=== PATIENT | female | born 1990 | race Caucasian/White ===

== ENCOUNTER 2016-09-08 22:11 | Emergency (ER) | payer BC ==
[~2016-09-08] VITALS: Ht 170.2 cm; Wt 85.0 kg
[~2016-09-08 22:11] MED LIST: AUGMENTIN875 MG PO; COLACE100 MG PO; DOXYCYCLINE HY100 MG PO; ENDOCET 5-3251 EACH PO; IBUPROFEN800 MG PO; NOHOMEMEDS; PRENA1 CHEW TA1.4 MG PO; PRILOSEC20 MG PO; VALTREX50 MG/ML PO; ZANTAC150 MG PO
[2016-09-08] MEDS ORDERED: PERCOCET 5/31 TABLET PO (23:27)
[2016-09-09 00:12] VITALS: BP 111/62
== END 2016-09-09 00:12 | disposition home or self-care (01) ==
LOC: EME 22:11
PROC: 2W3RX1Z Immobilization of Left Lower Leg using Splint (ICD-10-PCS; principal; 2016-09-08)
DX: S92.352A Displaced fracture of fifth metatarsal bone, left foot, initial encounter for closed fracture (principal); W18.30XA Fall on same level, unspecified, initial encounter; Y93.01 Activity, walking, marching and hiking
CPT/HCPCS: 73630; 99281; 99284

== ENCOUNTER 2017-02-28 13:56 | Emergency (ER) | payer BC ==
[~2017-02-28] VITALS: Ht 170.2 cm; Wt 80.8 kg
[~2017-02-28 13:56] MED LIST changes: +PERCOCET 5/31 TABLET PO
[2017-02-28 15:04] VITALS: BP 129/80
== END 2017-02-28 15:08 | disposition home or self-care (01) ==
LOC: EME 13:56
PROC: 0HQGXZZ Repair Left Hand Skin, External Approach (ICD-10-PCS; principal; 2017-02-28)
DX: S61.211A Laceration without foreign body of left index finger without damage to nail, initial encounter (principal); W26.0XXA Contact with knife, initial encounter; Z33.1 Pregnant state, incidental; Z3A.01 Less than 8 weeks gestation of pregnancy
CPT/HCPCS: 99281; 99284

== ENCOUNTER 2017-10-08 07:32 | Inpatient (IN) | payer BC ==
[2017-10-08] VITALS (27 sets, daily range): BP systolic 104–133; BP diastolic 56–80
[~2017-10-08] VITALS: Ht 170.2 cm; Wt 90.0 kg
[2017-10-08] MEDS ORDERED: VALTREX50 MG/ML PO (08:17)
[2017-10-08 09:19] LABS: BASOPHIL (%) 0.3 % (0-1); EOSINOPHIL (%) 0.4 % (0-5); HEMATOCRIT 35.2 % (36.0-46.0); HEMOGLOBIN 11.9 G/DL (11.9-15.5); IMMATURE GRANULOCYTE (%) 0.4 % (0.0-0.7); LYMPHOCYTE (%) 10.8 % (15-42); LYMPHOCYTE COUNT 1.1 K/uL (1.0-2.8); MCH 33.1 PG (29.0-34.0); MCHC 33.8 G/DL (30.0-36.0); MCV 98.1 FL (83-99); MONOCYTE (%) 4.1 % (3-12); MONOCYTE COUNT 0.4 K/uL (0-0.8); NEUTROPHIL COUNT 8.2 K/uL (1.8-6.4); PLATELET COUNT 147 K/uL (156-360); RBC DIS.WIDTH-CV 13.2 % (11.8-14.6); RBC DIS.WIDTH-SD 47.1 % (39-53); RED BLOOD COUNT 3.59 M/uL (3.80-5.20); WHITE BLOOD COUNT 9.8 K/uL (4.1-10.2)
[2017-10-08 09:45] LABS: BENZODIAZEPINES, URINE SCREEN Negative (200 ng/mL)
[2017-10-09] VITALS (7 sets, daily range): BP systolic 105–134; BP diastolic 53–68
[2017-10-10 07:40] VITALS: BP 100/58
[2017-10-10] MEDS ORDERED: IBUPROFEN800 MG PO (10:04)
== END 2017-10-10 10:50 | disposition home or self-care (01) | DRG 774 ==
LOC: LDRP-OP 07:32 → 2WEST 07:33 → LDRP-OP 11-28 11:50
PROVIDERS: Nurse Practitioner
DX: O36.5930 Maternal care for other known or suspected poor fetal growth, third trimester, not applicable or unspecified (principal); O98.32 Other infections with a predominantly sexual mode of transmission complicating childbirth; A60.00 Herpesviral infection of urogenital system, unspecified; Z3A.37 37 weeks gestation of pregnancy; Z37.0 Single live birth; Z87.410 Personal history of cervical dysplasia
CPT/HCPCS: 80306 90; 85025; C1755; J3010; J7120